=== PATIENT | female | born 2000 | race Hispanic/Latino ===

== ENCOUNTER 2020-01-01 20:01 | Emergency (ER) | payer OTHER ==
[2020-01-01] MEDS ORDERED: Lidocaine 1% (PF) 30 ML VIAL ONE (20:26)
[2020-01-01] MEDS ORDERED: Adacel (T-DAP) 0.5 ML SYRINGE ONE (20:37)
[2020-01-01] MEDS ORDERED: Triple Antibiotic Oint 1 GM Packet ONE (21:07)
== END 2020-01-01 21:25 | disposition home or self-care (01) ==
LOC: ERS 20:01
DX: S61.011A Laceration without foreign body of right thumb without damage to nail, initial encounter (principal); W26.0XXA Contact with knife, initial encounter
CPT/HCPCS: 12001; 90471; 90715; J2001